=== PATIENT | male | born 1965 | race Caucasian/White ===

== ENCOUNTER → 2024-12-04 12:54 | Day surgery (SDC) | payer BC, SELFPAY ==
[2024-12-04 13:19] VITALS: BP 111/70; PULSE 67; RESP 18; TEMP 36.1; O2SAT 95
[2024-12-04 13:20] VITALS: BMI 24.0
--- NOTE | 2024-12-04 15:02 | PC.NURSE ---
Pt to GI lab for enema. Orders received from Dr. Mariano for Milk of Molasses enema and soap suds enema. No molasses available in this facility at this time. Soap suds enema given. 2,000 mL, 1,000 mL, 1,000 mL, 1,000 mL given over a period of 2 hours. Total of 5,000 mL instilled with 5,000 mL liquid brown stool returned. Final return light brown with no formed stool noted. Pt stated he would go home and take the PO laxatives ordered by Dr. Mariano. Pt off unit via wheelchair to be taken home by pt significant other via personal vehicle.
== END ==
PROVIDERS: PCP Family Medicine; Visit Provider Family Medicine
DX: K59.00 Constipation, unspecified (principal)
CPT/HCPCS: 99212

== ENCOUNTER 2024-12-06 11:12 | Outpatient (CLI) | payer BC, SELFPAY ==
--- NOTE | 2024-12-06 11:17 | CT_ITS ---
WS: [id number] CT ABDOMEN AND PELVIS WITH CONTRAST HISTORY: ACUTE ABDOMINAL PAIN TECHNIQUE: Imaging performed of the abdomen and pelvis with IV contrast. Single phase imaging of the abdomen. Coronal and sagittal reformats are submitted. All CT scans at [facility] use at least one of these dose optimization techniques: automated exposure control; mA and/or kV adjustment per patient size (includes targeted exams where dose is matched to clinical indication); or iterative reconstruction. IV CONTRAST: Omnipaque 350; 100 mL IV. Oral contrast: Yes. DLP: 290.50 mGy.cm COMPARISON: None available. Lower thorax: Lung bases are clear. Heart is normal size. Small hiatal hernia. Liver/biliary system: Too small to characterize 8 mm low-attenuation nodule in the RIGHT lobe. Normal portal vein. Gallbladder: Normal. No gallstones or wall thickening. No pericholecystic fluid. Pancreas: Normal size pancreas and pancreatic duct. No adjacent inflammation. Spleen: Normal size spleen. No mass or infarct. Adrenal glands: Normal. Right kidney: Normal. Left kidney: No obstruction. 2 mm nonobstructing calcification lower pole. Aorta: Mild atherosclerosis with no aneurysm. LEFT renal vein is retroaortic. Lymphadenopathy: None. Free fluid: None. GI tract: Stomach is well distended with contrast. There is soft tissue thickening involving the GE junction which may be due to mild gastritis. Gastroesophageal neoplasm is not excluded. Consider upper endoscopy. No small bowel obstruction. Normal appendix. Mild diverticular disease in the sigmoid col on without acute diverticulitis. Abdominal wall: Unremarkable abdominal wall. No hernia. Pelvis: Urinary bladder is minimally distended. Prostate gland is enlarged encroaching upon the bladder. Central prostate calcifications. Bones: 7.4 mm anterolisthesis of L5. Anterior fusion L5-S1 with interbody spacer. CT/CT abdomen pelvis w con* [id number] IMPRESSION: 1. No GI tract obstruction or colitis identified. 2. No adenopathy or ascites. 3. Negative appendix. 4. Mild sigmoid diverticulosis without acute diverticulitis. 5. Gastroesophageal junction circumferential soft tissue thickening. This may be gastritis but neoplasm should also be excluded. Consider upper endoscopy. 6. No renal obstruction. 7. Atherosclerosis aorta.
[2024-12-06] MEDS: iohexol 350 mg/mL 500 mL Btl (per mL) PO (12:05)
[2024-12-06] MEDS: iohexol 350 mg/mL 500 mL Btl (per mL) IV (12:06)
== END 2024-12-06 11:13 | disposition home or self-care (01) ==
LOC: RAD 11:14
PROVIDERS: PCP Family Medicine; Visit Provider Family Medicine
DX: R10.9 Unspecified abdominal pain (principal); R93.3 Abnormal findings on diagnostic imaging of other parts of digestive tract; I70.0 Atherosclerosis of aorta
CPT/HCPCS: 74177

== ENCOUNTER 2025-01-23 09:18 | Day surgery (SDC) | payer BC, SELFPAY ==
[2025-01-23 09:37] VITALS: BP 119/97; PULSE 77; RESP 16; TEMP 36.3; O2SAT 95
[2025-01-23 09:44] VITALS: BMI 24.6
--- NOTE | 2025-01-23 10:24 | ANES.PREANE2 ---
Pre-Anesthetic Assessment Height/Weight: Height 1.73 m Weight 73.482 kg Temp Pulse Resp BP Pulse Ox O2 Del Method 97.3 F L 77 16 119/97 95 Room Air 01/23/25 09:37 01/23/25 09:37 01/23/25 09:37 01/23/25 09:37 01/23/25 09:37 01/23/25 09:37 Operation Date: 01/23/25 11:00 Proposed Procedures p EGD with Biopsy [id number] G0105 R199.4 R12 R93.89(Not Applicable) - Stanton Obando MD s Colonoscopy(Not Applicable) - Stanton Obando MD Familial anesthetic complications: none Was Beta Jeffrey taken within 24 hours: N/A Was Clonidine taken within 24 hours: N/A Last intake: Intake Last Liquid Date 01/22/25 Last Liquid Time 22:00 Last Solid Date 01/21/25 Last Solid Time 17:00 Social Tobacco (1/2ppd) and No alcohol Exam alert and oriented x 3 Airway Submandibular: within normal limits Cervical ROM: within normal limits Mallampati: Class I Dentition: full History/ROS No significant history except as noted Pulmonary None reported CV/HEM None reported None reported Hepatic None reported GI None reported Metabolic None reported Musc/skel Lower Back Pain anterior spine surgery in 2024. states bowels havent worked right since then Neuropsych None reported Anesthetic Plan ASA status: 2 Anesthesia: Anesthesia Evaluation and MAC Medications/Allergies Home Medications ?Medication ?Instructions ?Recorded ?Confirmed ?Last Taken ?Type hydroxyzine HCl 25 mg tablet 25 mg PO PRN PRN Itching 12/04/24 01/23/25 1 Week Ago History ~01/13/25 montelukast 10 mg tablet 10 mg PO DAILY 12/04/24 01/23/25 01/21/25 History Allergies Allergy/AdvReac Type Severity Reaction Status Date / Time No Known Allergies Allergy Verified 12/19/24 09:55 Current Medications Generic Name Dose Route Start Last Admin Trade Name Freq PRN Reason Stop Dose Admin Sodium Chloride 1,000 mls @ 15 mls/hr 01/23/25 09:26 01/23/25 09:49 Sodium Chloride 0.9% IV 01/24/25 09:25 15 mls/hr .Q24H PRN Administration COLONOSCOPY FLUIDS PFSH Anesthesia Social History Smoking and tobacco/nicotine status: never used tobacco/nicotine
--- NOTE | 2025-01-23 10:50 | W.PM.OPSFHP ---
Same Day Surgery H&P Indication for Procedure/HPI DATE OF PROCEDURE: January 23, 2025 CHIEF COMPLAINT/INDICATIONFOR SURGICAL PROCEDURE: hearburn, changes in bowel habits PREOP DIAGNOSIS: hearburn, changes in bowel habits PLANNED PROCEDURE: Operation Date: 01/23/25 11:00 Proposed Procedures p EGD with Biopsy [id number] G0105 R199.4 R12 R93.89(Not Applicable) - Stanton Obando MD s Colonoscopy(Not Applicable) - Stanton Obando MD Medications/Allergies* Home Medications ?Medication ?Instructions ?Recorded ?Confirmed ?Type hydroxyzine HCl 25 mg tablet 25 mg PO PRN PRN Itching 12/04/24 01/23/25 History montelukast 10 mg tablet 10 mg PO DAILY 12/04/24 01/23/25 History Allergies/Adverse Reactions Allergy/AdvReac Type Severity Reaction Status Date / Time No Known Allergies Allergy Verified 12/19/24 09:55 Current Medications: Generic Name Dose Route Start Last Admin Trade Name Freq PRN Reason Stop Dose Admin Sodium Chloride 1,000 mls @ 15 mls/hr 01/23/25 09:26 01/23/25 09:49 Sodium Chloride 0.9% IV 01/24/25 09:25 15 mls/hr .Q24H PRN Administration COLONOSCOPY FLUIDS Pertinent History/Comorbid Conditions* Social History Smoking and tobacco/nicotine status: never used tobacco/nicotine Pertinent Exam Findings alert, oriented x 3, clear to auscultation bilaterally, regular rate & rhythm and procedure specific exam findings abdomen soft, nt, nd Recommendations Risks and benefits of procedure reviewed and Patient/family agree to proceed Surgery/Procedure today Coding Level of Care Code Acute Code for Chg Fwd
[2025-01-23 11:31] VITALS: BP 89/61; PULSE 74; RESP 18; TEMP 36.2; O2SAT 96
[2025-01-23 11:41] VITALS: BP 88/63; PULSE 76; RESP 18; O2SAT 95
[2025-01-23 11:50] VITALS: BP 94/70; PULSE 91; RESP 18; O2SAT 94
[2025-01-23 12:00] VITALS: BP 130/96; PULSE 81; RESP 18; O2SAT 100
[2025-01-23 12:14] VITALS: BP 135/103; PULSE 85; RESP 18; O2SAT 99
--- NOTE | 2025-01-23 12:44 | ANE.PACU2 ---
Inpatient post-anesthesia follow up: Airway intact: Yes Vital signs: Temperature 97.1 F Pulse Rate 85 Respiratory Rate 18 Blood Pressure 135/103 Pulse Oximetry 99 Oxygen Delivery Me thod Room Air Oxygen Flow Rate Fraction of Inspir ed Oxygen Hydration adequate: Yes Nausea and vomiting: No Pain level: 1 Mental status: Baseline
--- NOTE | 2025-01-23 13:01 | SUR.OPER ---
cecum time [id number]
== END 2025-01-23 12:44 | disposition home or self-care (01) ==
PROVIDERS: PCP Family Medicine; Visit Provider Student in an Organized Health Care Education/Training Program
PROC: 0DJ08ZZ Inspection of Upper Intestinal Tract, Via Natural or Artificial Opening Endoscopic (ICD-10-PCS; principal; 2025-01-23 11:00)
PROC: 0DJD8ZZ Inspection of Lower Intestinal Tract, Via Natural or Artificial Opening Endoscopic (ICD-10-PCS; CPT 45378; 2025-01-23 11:00)
DX: R19.4 Change in bowel habit (principal); D12.8 Benign neoplasm of rectum; K57.30 Diverticulosis of large intestine without perforation or abscess without bleeding; K44.9 Diaphragmatic hernia without obstruction or gangrene; R12 Heartburn; K29.70 Gastritis, unspecified, without bleeding
CPT/HCPCS: 43239; 45380; 88305; J2704; J3490; J7030